=== PATIENT | female | born 1930 | race Caucasian/White ===

== ENCOUNTER → 2016-11-27 | Outpatient (CLI) | payer OTHER ==
[2015-09-16 11:19] VITALS: BP 131/62
--- NOTE | 2016-11-28 08:33 | US ---
Examination: Abdominal ultrasound. Clinical History: GERD. Technique: Real-time grayscale ultrasound was used to evaluate the upper abdomen. Comparison: None available. Findings: The gallbladder is normal in appearance with no cholelithiasis, gallbladder wall thickening or perich olecystic fluid noted. Incidental note is made of a prominent fold in the gallbladder, creating a Phr ygian cap deformity. The common bile duct measures 5 mm in diameter and is within normal limits. No intrahepatic biliary d uctal dilatation is noted. The liver is normal in echogenicity with no focal mass. The pancreas is obscured by bowel gas and could not be evaluated. The right kidney measures 9.2 cm in length and is suboptimally visualized with no focal mass, hydrone phrosis or nephrolithiasis noted. Impression: 1. Negative right upper quadrant abdominal ultrasound. Reported By:
== END ==
LOC: RAD 08:15
PROVIDERS: ATTEND Internal Medicine Gastroenterology
DX: R10.13 Epigastric pain (principal)
CPT/HCPCS: 76705

== ENCOUNTER 2016-12-08 13:51 | Emergency (ER) | payer OTHER ==
[2016-12-08 13:56] VITALS: BP 125/61; BMI 28.2
--- NOTE | 2016-12-08 14:26 | DR.GENAD ---
HPI - PCP Primary Care Physician: MIKE ANDERSON CHART WRITER - Complaint/Symptoms Chief Complaint Doctors Comments: Patient is being followed by Dr Washburn recent work up of gallbladder disease. Results pending according to patient She admits to sharp RUQ pain for several weeks. She denies nausea or vomiting. Chief Complaint:: PATIENT STATED THAT SHE IS HAVING UPPER QUAD. PAIN ON THE LEFT SIDE AND SHE ALSO IS HAVING KIDNEY PROBLEMS. - Source History Provided: Patient - Mode of Arrival Mode of Arrival: Ambulatory - Timing Onset of Chief Complaint: 12/07/16 PMH - PMH Past Medical History: Yes Past Medical History: GERD, Hypertension Past Surgical History: Yes Past Surgical History Comment: PACEMAKER - Family History History of Family Medical Conditions: No - Social History Does patient currently use any type of tobacco product: No Have you used tobacco products in the last 12 months: No Type of Tobacco Use: None Does any household member use tobacco: No Alcohol Use: None Do you use any recreational Drugs:: No Lives With: Family Lives Where: Home - infectious screening In the last 2 months have you had wt loss of >10#?: NO Have you had fever, night sweats or hemotysis?: No Have you traveled outside the country in the last 6 months?: No Isolation: Standard ROS - Review of Systems Eyes: No Symptoms Reported ENTM: No Symptoms Reported Respiratoy: No Symptoms Reported Cardiovascular: No Symptoms Reported Gastrointestinal/Abdominal: Abdominal Pain Genitourinary: No Symptoms Reported Neurological: No Symptoms Reported Musculoskeletal: No Symptoms Reported Integumentary: No Symptoms Reported Hematologic/Lymphatic: No Symptoms Reported Endocrine: No Symptoms Reported Psychiatric: No Symptoms Reported All Other Systems: Reviewed and Negative PE - Vital Signs Vitals: Pulse Rate 77 Respiratory Rate 20 Blood Pressure 125/61 O2 Sat by Pulse Oximetry 97 - General Limitations: No Limitations General Appearance: Alert, In No Apparent Distress - Head Head Exam: Normal Inspection, Atraumatic - Eyes Eye exam: Normal Appearance, PERRL, EOMI - ENT ENT Exam: Normal Exam, Normal Oropharynx External Ear Exam: Normal External Inspection TM/Canal Exam: Bilateral Normal Nose Exam: Normal Nose Exam Mouth Exam: Normal Inspection Throat Exam: Normal Inspection - Neck Neck Exam: Normal Inspection, Full ROM - Chest Chest Inspection: Normal Inspection, Symmetric Chest Wall Rise - Respiratory Respiratory Exam: Normal Lung Sounds Bilat Respiratory Exam: Bilateral Clear to Auscultation - Cardiovascular Cardiovascular Exam: Regular Rate, Normal Rhythm - Abdominal Exam Abdominal Exam: Normal Inspection, Normal Bowel Sounds Abdominal Tenderness: RUQ, Epigastrium - Extremities Extremities Exam: Normal Inspection, Full ROM - Back Back Exam: Normal Inspection, Full ROM - Neurologic Neurological Exam: Alert, Oriented X3, CN II-XII Intact - Psychiatric Psychiatric Exam: Normal Affect, Normal Mood - Skin Skin Exam: Warm, Dry, Intact Course - Reevaluation 1st: Unchanged ROR - Labs Reviewed Result Diagrams: 12/08/16 14:35 12/08/16 14:35 Laboratory: WBC 6.8 X10^3/uL (3.6-10.0) 12/08/16 14:35 RBC 3.86 X10^6/uL (3.5-5.4) 12/08/16 14:35 Hgb 11.8 g/dL (12.0-16.0) L 12/08/16 14:35 Hct 34.5 % (36.0-47.0) L 12/08/16 14:35 MCV 89.3 fL (80.0-100.0) 12/08/16 14:35 MCH 30.6 pg (27.0-34.0) 12/08/16 14:35 MCHC 34.3 g/dL (33.0-35.0) 12/08/16 14:35 RDW 13.3 % (11.6-16.5) 12/08/16 14:35 Plt Count 336 X10^3/uL (150.0-450.0) 12/08/16 14:35 MPV 7.2 fL (7.4-11.0) L 12/08/16 14:35 Neut % 58.2 % (42.0-75.0) 12/08/16 14:35 Lymph % 27.8 % (21.0-51.0) 12/08/16 14:35 [place] % 8.5 % (0.0-13.0) 12/08/16 14:35 Eos % 4.2 % (0.9-2.9) H 12/08/16 14:35 Baso % 1.3 % (0.2-1.0) H 12/08/16 14:35 Neut # 4.0 x10^3/uL (2.2-4.8) 12/08/16 14:35 Lymph # 1.9 X10^3/uL (1.3-2.9) 12/08/16 14:35 [place] # 0.6 x10^3/uL (0.3-0.8) 12/08/16 14:35 Eos # 0.3 x10^3/uL (0.0-0.2) H 12/08/16 14:35 Baso # 0.1 X10^3/uL (0.0-0.1) 12/08/16 14:35 Absolute Nucleated RBC 0.0 /100WBC 12/08/16 14:35 Sodium 135 mmol/L (136-145) L 12/08/16 14:35 Corrected Sodium TNP 12/08/16 14:35 Potassium 4.5 mmol/L (3.5-5.1) 12/08/16 14:35 Chloride 100 mmol/L (98-107) 12/08/16 14:35 Carbon Dioxide 29.6 mmol/L (21-32) 12/08/16 14:35 BUN 18 mg/dL (7-18) 12/08/16 14:35 Creatinine 1.32 mg/dL (0.55-1.02) H 12/08/16 14:35 Est GFR (MDRD) Af Amer 49 (>60) L 12/08/16 14:35 Est GFR (MDRD) Non-Af 41 (>60) L 12/08/16 14:35 Glucose 95 mg/dL (65-99) 12/08/16 14:35 Calcium 9.3 mg/dL (8.5-10.1) 12/08/16 14:35 C-Reactive Protein 4.10 mg/L (0-3.0) H 12/08/16 14:35 Amylase 58 Units/L (25-115) 12/08/16 14:35 Lipase 161 Units/L (73-393) 12/08/16 14:35 Specimen Type Clean catch urine 12/08/16 14:31 Urine Color Yellow (YELLOW) 12/08/16 14:31 Urine Appearance Hazy (CLEAR) 12/08/16 14:31 Urine pH 5.0 (5.0 - 8.0) 12/08/16 14:31 Ur Specific [place] 1.015 (1.000-1.030) 12/08/16 14:31 Urine Protein 1+ (NEGATIVE) 12/08/16 14:31 Urine Glucose (UA) Negative (NEGATIVE) 12/08/16 14:31 Urine Ketones Negative (NEGATIVE) 12/08/16 14:31 Urine Occult Blood 1+ (NEGATIVE) 12/08/16 14:31 Urine Nitrite Negative (NEGATIVE) 12/08/16 14:31 Urine Bilirubin Negative (NEGATIVE) 12/08/16 14:31 Urine Urobilinogen Normal (NORMAL) 12/08/16 14:31 Ur Leukocyte Esterase 3+ (NEGATIVE) 12/08/16 14:31 Urine RBC 0-2 /HPF (NEGATIVE) 12/08/16 14:31 Urine WBC 3-5 /HPF (NEGATIVE) 12/08/16 14:31 Ur Squamous Epith Cells Few /HPF (NEGATIVE) 12/08/16 14:31 Urine Bacteria Trace /HPF (NEGATIVE) 12/08/16 14:31 Hyaline Casts Moderate /LPF (NEGATIVE) 12/08/16 14:31 Urine Mucus Moderate /HPF (NEGATIVE) 12/08/16 14:31 Ur Culture Indicated? No/not indicated 12/08/16 14:31 H. pylori IgG Antibody Negative (NEGATIVE) 12/08/16 14:35 - XRAY XRAY Interpreted by: Radiologist (CT Abd/Pel: No acute abnormality eo explain the patients pain. Mild cardiomegaly, chronic lung base scarring. spne degenerative change, vascular palque and pelvic floor prolapse suggested. Left renal cyst favored through technically this is indeterminate. Noemergent ultrasound confirmation could be performed to confirm.) - Diagnosis Discharge Problem: RUQ abdominal pain - Discharge Plan Condition: Stable - Follow ups/Referrals Follow ups/Referrals: NFD,None [Primary Care Provider] - 3 days - Instructions
[2016-12-08 14:46] LABS: BASOPHILS # (AUTO) 0.1 X10^3/uL (0.0-0.1); BASOPHILS % (AUTO) 1.3 % (0.2-1.0); EOSINOPHILS # (AUTO) 0.3 x10^3/uL (0.0-0.2); EOSINOPHILS % (AUTO) 4.2 % (0.9-2.9); HEMATOCRIT 34.5 % (36.0-47.0); HEMOGLOBIN 11.8 g/dL (12.0-16.0); LYMPHOCYTES # (AUTO) 1.9 X10^3/uL (1.3-2.9); LYMPHOCYTES % (AUTO) 27.8 % (21.0-51.0); MEAN CORPUSCULAR HEMOGLOBIN 30.6 pg (27.0-34.0); MEAN CORPUSCULAR HGB CONC 34.3 g/dL (33.0-35.0); MEAN CORPUSCULAR VOLUME 89.3 fL (80.0-100.0); MEAN PLATELET VOLUME 7.2 fL (7.4-11.0); MONOCYTES # (AUTO) 0.6 x10^3/uL (0.3-0.8); MONOCYTES % (AUTO) 8.5 % (0.0-13.0); NEUTROPHILS % (AUTO) 58.2 % (42.0-75.0); PLATELET COUNT 336 X10^3/uL (150.0-450.0); RED BLOOD COUNT 3.86 X10^6/uL (3.5-5.4); RED CELL DISTRIBUTION WIDTH 13.3 % (11.6-16.5); WHITE BLOOD COUNT 6.8 X10^3/uL (3.6-10.0)
[2016-12-08 14:55] LABS: AMYLASE 58 Units/L (25-115); BLOOD UREA NITROGEN 18 mg/dL (7-18); CALCIUM 9.3 mg/dL (8.5-10.1); CARBON DIOXIDE 29.6 mmol/L (21-32); CHLORIDE 100 mmol/L (98-107); CREATININE 1.32 mg/dL (0.55-1.02); LIPASE 161 Units/L (73-393); SODIUM 135 mmol/L (136-145); eGFR BLACK RACES 49 (>60); eGFR NON BLACK RACES 41 (>60)
[2016-12-08 15:11] LABS: BILIRUBIN,URINE NEGATIVE (NEGATIVE); BLOOD/HEMOGLOBIN,URINE 1+ (NEGATIVE); GLUCOSE, URINE NEGATIVE (NEGATIVE); KETONES,URINE NEGATIVE (NEGATIVE); LEUKOCYTE ESTERASE ,URINE 3+ (NEGATIVE); NITRITES,URINE NEGATIVE (NEGATIVE); PROTEIN,URINE 1+ (NEGATIVE); UROBILINOGEN,URINE NORMAL (NORMAL)
[2016-12-08 15:21] LABS: APPEARANCE,URINE HAZY (CLEAR); BACTERIA,URINE TRACE /HPF (NEGATIVE); COLOR,URINE YELLOW (YELLOW); RBC,URINE 0-2 /HPF (NEGATIVE); SQUAMOUS EPITHELIAL CELL,UR FEW /HPF (NEGATIVE)
[2016-12-08 15:22] LABS: HYALINE CASTS, URINE MODERATE /LPF (NEGATIVE); MUCUS,URINE MODERATE /HPF (NEGATIVE)
--- NOTE | 2016-12-08 17:24 | CT ---
CT abdomen and pelvis without contrast Indication: Abdominal pain with right upper quadrant pain and nausea. Technique: Helical images through the abdomen and pelvis after oral contrast only. Coronal and sagitt al reformats provided. Findings: Review of bone windows shows no destructive osseous lesion. Spine curves to the left. Multi level disk degenerative change and facet arthropathy seen. Pelvic degenerative changes noted. Limited images through lower chest shows chronic scarring in the lung bases. Pacemaker leads noted, w ith calcifications along the mitral valve and aortic valve. Abdomen: The gallbladder, liver, spleen, adrenal glands, pancreas, stomach and small bowel are normal . Colonic diverticulosis is noted. The colon is otherwise normal. Aortic and branch vessel calcificat ions noted. Exophytic left renal cyst noted, slightly more hyperdense than usual. There is no hydrour eteronephrosis identified. Pelvis: Urinary bladder and rectum appear relatively normal with mild pelvic floor insufficiency or r ectal prolapse suggested. Uterus is absent. No adnexal region lesion seen. Impression: 1. No acute abnormality to explain the patient's pain. 2. Mild cardiomegaly, chronic lung base scarring, spine degenerative change, vascular plaque and pelv ic floor prolapse suggested. 3. Left renal cyst favored though technically this is indeterminate. Nonemergent ultrasound confirmat ion could be performed to confirm. Reported By:
== END 2016-12-08 18:01 | disposition home or self-care (01) ==
LOC: ER 14:02
DX: R10.11 Right upper quadrant pain (principal)
CPT/HCPCS: 36415; 74176; 80048; 81001; 82150; 83690; 85025; 86140; 86677; 99282

== ENCOUNTER → 2016-12-19 | Outpatient (CLI) | payer OTHER ==
[2016-12-08 13:56] VITALS: BP 125/61
--- NOTE | 2016-12-19 12:00 | NM ---
HISTORY: Abdominal pain. Study: Nuclear medicine HIDA scan with ejection fraction Comparison: Gallbladder ultrasound dated November 27, 2016. Technique: Multiple scintigraphic images of the abdomen were obtained the intravenous administration of 5.4 mCi of technetium labeled Choletec. Following distention of the gallbladder with radiotracer a bottle of Ensure was given. An estimated gallbladder ejection fraction was calculated based on this physiologic response. Findings: Homogeneous uptake of radiotracer is seen throughout the liver. The intrabiliary ductal system is ob served normally. The common hepatic and common bile duct grossly appear unremarkable with normal margo iary-bowel transit. The gallbladder is observed to fill normally. After the administration of Ensure, a normal gallbladder ejection fraction of 37% (normal > 35%) is o bserved. IMPRESSION: 1. Normal hepatobiliary imaging scan. 2. Normal gallbladder ejection fraction. Reported By:
== END ==
LOC: RAD 08:59
PROVIDERS: ATTEND Internal Medicine Gastroenterology
DX: R10.11 Right upper quadrant pain (principal); R10.13 Epigastric pain
CPT/HCPCS: 78227